=== PATIENT | female | born 1975 | race Caucasian/White ===

== ENCOUNTER 2019-11-18 03:46 | Inpatient (IN) | payer BC ==
[~2019-11-18] VITALS: Ht 162.6 cm; Wt 90.8 kg
[2019-11-18] MEDS ORDERED: CEFTRIAXONE SOD 1 GM/NS 50 ML 50 ML IV ONE (04:00)
[2019-11-18] MEDS ORDERED: DEXAMETHASONE SOD PHOS 10 MG/1 ML VIAL IV ONE (04:00)
[2019-11-18] MEDS ORDERED: ACETAMINOPHEN 325 MG TAB PO ONE (04:00)
[2019-11-18] MEDS ORDERED: ONDANSETRON HCL INJ 2MG/ML 2ML 2 MG/ML VIAL IV STA (04:00)
[2019-11-18] MEDS ORDERED: AZITHROMYCIN 500MG/NS 250 ML 250 ML IV ONE (04:00)
[2019-11-18] MEDS ORDERED: ONDANSETRON HCL INJ 2MG/ML 2ML 2 MG/ML VIAL ONE (04:08)
[2019-11-18] MEDS ORDERED: ACETAMINOPHEN 325 MG TAB ONE (04:08)
--- NOTE | 2019-11-18 04:34 | Emergency Department Note ---
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 Historian: Patient Arrival Mode: Car Integrity Manager Required: No Onset (how long ago): day(s) (3) Location: CHEST Quality: COUGH, SOB Radiation: Reports non-radiation Severity: moderate Onset quality: gradual Duration (how long): day(s) (3) Timing of current episode: constant Progression: worsening Chronicity: new Context: Denies recent illness, Denies recent surgery, Denies recent travel, Denies trauma/injury Relieving factors: none Exacerbating factors: movement, other (COUGHIN) Associated symptoms: Reports cough, Reports fever/chills, Reports nausea/vomiting, Reports shortness of breath Treatments prior to arrival: antipyretic Past Medical/Family History Physician Review I have reviewed the patient's past medical and family history. Any updates have been documented here. Past Medical History Recent Fever: Yes Clinical Suspicion of Infectio: Yes New/Unexplained Change in Ment: No Past Medical History: None Past Surgical History: Tubal Ligation, , Hernia Repair Other Surgery: X5 HERNIA MESH Social History Smoking Cessation: Former smoker Alcohol Use: None Any Illegal Drug Use: No Family History Family history of heart diseas: No Review of Systems Review of Systems Constitutional: Reports no symptoms EENTM: Reports no symptoms Cardiovascular: Reports no symptoms Respiratory: Reports as per HPI Gastrointestinal: Reports as per HPI Genitourinary: Reports no symptoms Musculoskeletal: Reports no symptoms Integumentary: Reports no symptoms Neurological: Reports no symptoms Psychological: Reports no symptoms Endocrine: Reports no symptoms Hematological/Lymphatic: Reports no symptoms Physical Exam Related Data Allergies: Coded Allergies: No Known Allergies (Unverified , 11/18/19) Triage Vital Signs Vital Signs Date Time Temp Pulse Resp B/P (MAP) Pulse Ox O2 Delivery O2 Flow Rate FiO2 11/18/19 03:51 103.3 104 24 156/100 87 Room Air 11/18/19 04:06 2.0 Vital signs reviewed: Yes Physical Exam CONSTITUTIONAL Constitutional: Present well-developed, Present well-nourished HENT HENT: Present normocephalic, Present atraumatic, Present oropharynx clear/moist, Present nose normal HENT L/R: Present left ext ear normal, Present right ext ear normal EYES Eyes: Reports PERRL, Reports conjunctivae normal NECK Neck: Present ROM normal PULMONARY Pulmonary: Present effort normal, Present other (BREATH SOUNDS DECREASED IN LOWER LOBES BILATERAL) CARDIOVASCULAR Cardiovascular: Present regular rhythm, Present heart sounds normal, Present capillary refill normal, Present tachycardia (102) GASTROINTESTINAL Abdominal: Present soft, Present nontender, Present bowel sounds normal GENITOURINARY Genitourinary: Present exam deferred SKIN Skin: Present warm, Present dry MUSCULOSKELETAL Musculoskeletal: Present ROM normal NEUROLOGICAL Neurological: Present alert, Present oriented x 3, Present no gross motor or sensory deficits PSYCHOLOGICAL Psychological: Present mood/affect normal, Present judgement normal Results Laboratory Laboratory Laboratory Tests Test 11/18/19 04:50 11/18/19 04:00 White Blood Count 2.39 x10e3/uL (4.8-10.8) Red Blood Count 4.52 x10e6/uL (3.6-5.1) Hemoglobin 12.2 g/dL (12.0-16.0) Hematocrit 37.8 % (34.2-44.1) Mean Corpuscular Volume 83.6 fL (81-99) Mean Corpuscular Hemoglobin 27.0 pg (28-32) Mean Corpuscular Hemoglobin Concent 32.3 g/dL (31-35) Red Cell Distribution Width 14.5 % (11.7-14.4) Platelet Count 187 x10e3/uL (140-360) Neutrophils (%) (Auto) 62.8 % (38.7-80.0) Lymphocytes (%) (Auto) 29.3 % (18.0-39.1) Monocytes (%) (Auto) 6.7 % (4.4-11.3) Eosinophils (%) (Auto) 0.4 % (0.0-6.0) Basophils (%) (Auto) 0.4 % (0.0-1.0) Neutrophils # (Auto) 1.5 (2.1-6.9) Lymphocytes # (Auto) 0.7 (1.0-3.2) Monocytes # (Auto) 0.2 (0.2-0.8) Eosinophils # (Auto) 0.0 (0.0-0.4) Basophils # (Auto) 0.0 (0.0-0.1) Absolute Immature Granulocyte (auto 0.01 x10e3/uL (0-0.1) Urine Color Yellow (YELLOW) Urine Clarity Sl cloudy (CLEAR) Urine pH 6 (5 - 7) Urine Specific [place] 1.025 (1.010-1.025) Urine Protein 1+ (NEGATIVE) Urine Glucose (UA) Negative (NEGATIVE) Urine Ketones Negative (NEGATIVE) Urine Blood Trace (NEGATIVE) Urine Nitrite Negative (NEGATIVE) Urine Bilirubin Negative (NEGATIVE) Urine Urobilinogen 1 mg/dL (0.2 - 1) Urine Leukocyte Esterase Negative (NEGATIVE) Urine RBC 6-10 /HPF (0-5) Urine WBC 6-10 /HPF (0-5) Urine Epithelial Cells Moderate /LPF (NONE) Urine Bacteria Many /HPF (NONE) Urine Mucus Many (RARE) Sodium Level 136 mmol/L (136-145) Potassium Level 3.6 mmol/L (3.5-5.1) Chloride Level 99 mmol/L (98-107) Carbon Dioxide Level 24 mmol/L (22-29) Anion Gap 16.6 mmol/L (8-16) Blood Urea Nitrogen 5 mg/dL (7-26) Creatinine 0.72 mg/dL (0.57-1.11) Estimat Glomerular Filtration Rate > 60 ML/MIN (60-) BUN/Creatinine Ratio 7 (6-25) Glucose Level 137 mg/dL (74-118) Lactic Acid Level 1.2 mmol/L (0.5-2.0) Calcium Level 8.1 mg/dL (8.4-10.2) Total Bilirubin 0.3 mg/dL (0.2-1.2) Aspartate Amino Transf (AST/SGOT) 42 IU/L (5-34) Alanine Aminotransferase (ALT/SGPT) 24 IU/L (0-55) Alkaline Phosphatase 51 IU/L (40-150) Creatine Kinase 172 IU/L (29-168) Total Protein 7.2 g/dL (6.5-8.1) Albumin 3.1 g/dL (3.5-5.0) Globulin 4.1 g/dL (2.3-3.5) Albumin/Globulin Ratio 0.8 (0.8-2.0) Lab results reviewed: Yes Imaging Imaging results reviewed: Yes Impressions Procedure: [id number] DX/CHEST SINGLE (PORTABLE) Exam Date: 11/18/19 Exam Time: 0430 REPORT STATUS: Signed EXAMINATION: CHEST SINGLE (PORTABLE) INDICATION: COUGH, SOB, POSSIBLE COVID COMPARISON: None FINDINGS: TUBES and LINES: None. LUNGS: Peripheral predominant hazy and patchy opacities in the mid and lower lungs. Patchy perihilar opacities. PLEURA: No pleural effusion or pneumothorax. HEART AND MEDIASTINUM: The cardiomediastinal silhouette is unremarkable. IMPRESSION: Lung findings concerning for multifocal pneumonia/viral pneumonia. Signed by: Scooter Ahumada MD on 11/18/2019 4:56 AM Dictated By: SCOOTER AHUMADA MD 5 Transcribed By: SUJATA on 11/18/19455 COPY TO: JAMARCUS BEAVERS MD~ Procedures 12 Lead ECG Interpretation ECG Interpretation : ECG: ECG 1 Integrity Manager: Interpreted by ED physician Date: Nov 18, 2019 Time: 04:17 Rhythm: sinus rhythm Rate: normal BPM: 89 QRS axis: normal ST segments normal: Yes T waves normal: Yes T waves flattening: V1, V2 Other findings: no other findings Clinical Impression: abnormal ECG Assessment & Plan Medical Decision Making MDM PT WITH DRY COUGH, FEVER CHILLS, AND NAUSEA CBC, CMP, COVID 19, BLOOD CULTURES, UA, URINE CULTURE, LACTIC ACID, CXR, EKG,CARDIAC ENZYMES ORDERED TO EVAL FOR COVID 19, PNEUMONIA, SEPSIS, ELECTROLYTE ABNORMALITY, UTI TYLENOL 975 MG PO ORDERED ROCEPHIN 1GRAM IV ORDERED ZITHROMAX 500 MG IV ORDERED ZOFRAN 4 MG IV ORDERED I SPOKE WITH DR MARINELLI, DR Violet JACINTO AND LEFT A MESSAGE FOR DR SEAY, ADMIT INPATIENT TO COVID PUI Assessment & Plan Final Impression: (1) COVID-19 (2) Viral pneumonia (3) UTI (urinary tract infection) (4) Hypoxemia requiring supplemental oxygen (5) Fever Depart Disposition: ADMITTED Last Vital Signs Date Time Temp Pulse Resp B/P (MAP) Pulse Ox O2 Delivery O2 Flow Rate FiO2 11/18/19 04:06 2.0 11/18/19 03:51 103.3 104 24 156/100 87 Room Air Medications in the ED Ceftriaxone Sodium 50 ml @ 100 mls/hr ONCE ONCE IV ; Start 11/18/19 at 04:00; Stop 11/18/19 at 04:29 Azithromycin 250 ml @ 200 mls/hr NOW ONCE IV ; Start 11/18/19 at 04:00; Stop 11/18/19 at 05:14 Dexamethasone Sodium Phosphate 6 mg ONCE ONCE IV ; Start 11/18/19 at 04:00; Stop 11/18/19 at 04:05; Status DC Acetaminophen 975 mg ONCE ONCE PO Last administered on 11/18/19at 04:05; Admin Dose 975 MG; Start 11/18/19 at 04:00; Stop 11/18/19 at 04:05; Status DC Ondansetron HCl 4 mg NOW STAT IV Last administered on 11/18/19at 04:05; Admin Dose 4 MG; Start 11/18/19 at 04:00; Stop 11/18/19 at 04:05; Status DC Acetaminophen 975 mg STK-MED ONCE .ROUTE ; Start 11/18/19 at 04:08; Stop 11/18/19 at 04:01; Status DC Ondansetron HCl 4 mg STK-MED ONCE .ROUTE ; Start 11/18/19 at 04:08; Stop 11/18/19 at 04:01; Status DC JAMARCUS BEAVERS MD Nov 18, 2019 04:34
[2019-11-18 04:36] LABS: BASOPHILS % 0.4 % (0.0-1.0); EOSINOPHILS % 0.4 % (0.0-6.0); HEMATOCRIT 37.8 % (34.2-44.1); HEMOGLOBIN 12.2 g/dL (12.0-16.0); LYMPHOCYTES # (AUTO) 0.7 (1.0-3.2); LYMPHOCYTES % 29.3 % (18.0-39.1); MEAN CORPUSCULAR HGB CONC 32.3 g/dL (31-35); MEAN CORPUSCULAR VOLUME 83.6 fL (81-99); MONOCYTES # (AUTO) 0.2 (0.2-0.8); MONOCYTES % 6.7 % (4.4-11.3); NEUTROPHILS # (AUTO) 1.5 (2.1-6.9); NEUTROPHILS % 62.8 % (38.7-80.0); PLATELET COUNT 187 x10e3/uL (140-360); RED BLOOD COUNT 4.52 x10e6/uL (3.6-5.1); RED CELL DISTRIBUTION WIDTH 14.5 % (11.7-14.4)
[2019-11-18 04:47] LABS: CLARITY,URINE SL CLOUDY (CLEAR); COLOR,URINE YELLOW (YELLOW); LEUKOCYTE ESTERASE ,URINE NEGATIVE (NEGATIVE); NITRITE,URINE NEGATIVE (NEGATIVE); PROTEIN,URINE DIPSTICK 1+ (NEGATIVE)
[2019-11-18 04:48] LABS: BILIRUBIN,URINE NEGATIVE (NEGATIVE); KETONES,URINE NEGATIVE (NEGATIVE); URINE UROBILINOGEN 1 mg/dL (0.2 - 1)
[2019-11-18 04:55] LABS: ALANINE AMINOTRANSFERASE 24 IU/L (0-55); ALBUMIN 3.1 g/dL (3.5-5.0); ALBUMIN/GLOBULIN RATIO 0.8 (0.8-2.0); ALKALINE PHOSPHATASE 51 IU/L (40-150); ANION GAP 16.6 mmol/L (8-16); BLOOD UREA NITROGEN 5 mg/dL (7-26); BUN/CREATININE RATIO 7 (6-25); CALCIUM 8.1 mg/dL (8.4-10.2); CARBON DIOXIDE 24 mmol/L (22-29); CHLORIDE 99 mmol/L (98-107); CREATINE KINASE 172 IU/L (29-168); CREATININE, SERUM 0.72 mg/dL (0.57-1.11); EST GLOMERULAR FILTRATION RATE > 60 ML/MIN (60-); GLUCOSE 137 mg/dL (74-118); POTASSIUM 3.6 mmol/L (3.5-5.1); SODIUM 136 mmol/L (136-145)
[2019-11-18 04:58] LABS: BACTERIA,URINE MANY /HPF; EPITHELIAL CELLS,URINE MODERATE /LPF; MUCUS,URINE MANY (RARE)
--- NOTE | 2019-11-18 05:00 | Diagnostic Imaging Report ---
EXAMINATION: CHEST SINGLE (PORTABLE) INDICATION: COUGH, SOB, POSSIBLE COVID COMPARISON: None FINDINGS: TUBES and LINES: None. LUNGS: Peripheral predominant hazy and patchy opacities in the mid and lower lungs. Patchy perihilar opacities. PLEURA: No pleural effusion or pneumothorax. HEART AND MEDIASTINUM: The cardiomediastinal silhouette is unremarkable. IMPRESSION: Lung findings concerning for multifocal pneumonia/viral pneumonia. Signed by: Radames Arrieta MD on 11/18/2019 4:56 AM
[2019-11-18] MEDS ORDERED: ONDANSETRON HCL INJ 2MG/ML 2ML 2 MG/ML VIAL IV PRN (05:15)
[2019-11-18] MEDS ORDERED: AZITHROMYCIN 500MG/NS 250 ML 250 ML IV SCH (05:15)
[2019-11-18] MEDS ORDERED: SODIUM CHLORIDE FLUSH 10 ML SYR INJ PRN (05:15)
[2019-11-18] MEDS ORDERED: DEXAMETHASONE SOD PHOS 10 MG/1 ML VIAL IV SCH (05:15)
[2019-11-18] MEDS ORDERED: CEFTRIAXONE SOD 1 GM/NS 50 ML 50 ML IV SCH (05:15)
[2019-11-18] MEDS ORDERED: ACETAMINOPHEN 325 MG TAB PO PRN (05:15)
[2019-11-18 06:34] VITALS: BP 109/67
--- NOTE | 2019-11-18 07:01 | NUR ---
PT REPORT GIVEN TO DAYSMDFT NURSE, Christen REYES LVN.
--- NOTE | 2019-11-18 07:02 | NUR ---
received report from off going nurse. patient in room in bed. awake and alert. no s/s of acute distress. resp even and non labored. pending room assignment for admission. will continue to monitor.
[2019-11-18] MEDS ORDERED: HYDRALAZINE HCL 20 MG/ML VIAL IV PRN (07:15)
[2019-11-18] MEDS ORDERED: MELATONIN 5 MG TABLET PO PRN (07:15)
[2019-11-18] MEDS ORDERED: DOCUSATE SODIUM 100 MG CAP PO PRN (07:15)
[2019-11-18] MEDS ORDERED: POLYETHYLENE GLYCOL 3350 17 GM PACK PO PRN (07:30)
[2019-11-18] MEDS ORDERED: IBUPROFEN 600 MG TAB PO PRN (07:30)
[2019-11-18] MEDS ORDERED: DEXTROSE 50% SYRINGE 50 ML IV PRN ×2 (07:30)
[2019-11-18] MEDS: PANTOPRAZOLE SOD 40 MG TABEC PO SCH (08:41)
--- NOTE | 2019-11-18 09:03 | Consultation ---
DATE OF CONSULTATION: Pulmonary Critical Care Consultation CHIEF COMPLAINT: Cough, dyspnea and fevers. HISTORY OF PRESENT ILLNESS: The patient is a 44-year-old woman. She reports cough for the past 3 days. She also had some fevers. This morning, she had more difficulty breathing and she came to the emergency department. Her temperature was 103 initially, but improved with Tylenol and fluids. She also had a chest x-ray suggestive of multifocal pneumonia. PAST SURGICAL HISTORY: 1. Status post C-sections and tubal ligation. 2. Status post hernia repair with mesh placement. PAST MEDICAL HISTORY: 1. No prior history of asthma or respiratory problems. 2. No prior history of cardiac disease. 3. No prior history of diabetes. 4. No hypertension. ALLERGIES: NO KNOWN DRUG ALLERGIES. SOCIAL HISTORY: The patient quit smoking several years ago. She is not a drinker. She has some cats at home, but no birds or dogs. FAMILY HISTORY: Noncontributory. REVIEW OF SYSTEMS: The patient had fevers. There is no headache. She has no neck pain. She is complaining of cough and dyspnea. She has no chest pain. She has no nausea or vomiting. She did have some diarrhea. She has no leg swelling. She has no neurological complaints. PHYSICAL EXAMINATION: VITAL SIGNS: Blood pressure is 138/75, saturation is 98% on 2 L. Temperature is now 100.3. HEENT: Shows no facial swelling or erythema. LYMPHATIC: Shows no submandibular, cervical, or supraclavicular adenopathy. CARDIAC: Reveals regular rate and rhythm with normal S1 and S2. LUNGS: Auscultation of lungs reveals crackles at the bases. There is no wheezing. ABDOMEN: Soft and nontender. There is no rebound or guarding. EXTREMITIES: Shows no leg edema or calf tenderness. There is no cyanosis or clubbing. SKIN: Shows no rashes. NEUROLOGICAL: Shows no focal abnormalities. LABORATORY DATA: White blood cell count is 2.4 and hemoglobin is 12.2. The platelet count is 187. The BUN to creatinine ratio is 5 to 0.72. The potassium is 3.6. The other electrolytes are within normal limits and the albumin is 3.1. RADIOGRAPHIC DATA: Chest x-ray shows multifocal infiltrates suggestive of viral pneumonia. IMPRESSION: 1. COVID-19 and viral pneumonia. 2. Leukopenia, present on admission. 3. Diarrhea. PLAN: 1. The patient was started on azithromycin and Rocephin. 2. The patient is also receiving dexamethasone. 3. Lovenox. 4. Judicious use of intravenous fluids. 5. Because the patient has only been symptomatic for 3 days, she may be a very good candidate for remdesivir and/or monoclonal antibodies. MD JENI Lennon/IDALIA /[id number]
[2019-11-18] MEDS: CEFTRIAXONE SOD 2 GM/NS 100 ML 100 ML IV SCH (11:09)
[2019-11-18] MEDS: AZITHROMYCIN 500MG/NS 250 ML 250 ML IV SCH (11:09)
--- NOTE | 2019-11-18 12:47 | NUR ---
Skilled PT services not indicated at this time since patient is independent in functional mobility. Thank you. Addendum: 11/18/19 at 1248 by Darin bourgeois PT Amended: Links added.
--- NOTE | 2019-11-18 12:49 | Consultation ---
DATE OF CONSULTATION: REASON FOR CONSULTATION: Pneumonia, concerned about COVID. HISTORY OF PRESENT ILLNESS: This patient is a very pleasant 44-year-old white female, comes in with 3 days history of cough, fever, and not feeling well. 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 The patient came to emergency room where she was found to be hypoxemic. She is currently on 2 L. PAST MEDICAL HISTORY: She denies any past medical history. PAST SURGICAL HISTORY: , hernia repair, and mesh placement. ALLERGIES: NKA. SOCIAL HISTORY: She quit smoking several years ago. There is no drug abuse or alcohol abuse. She has cat in the hospice, no other animals. LABORATORY DATA: White count 2.39, hemoglobin 12, hematocrit 37, platelets 187. Her sodium 136, potassium 3.6, creatinine 0.72. Her influenza A and B were negative. Her COVID-19 is still pending. Her chest x-ray showed multifocal pneumonia. PHYSICAL EXAMINATION: GENERAL: She is currently alert, oriented. VITAL SIGNS: Stable, currently afebrile, temperature 100.3. HEENT: Normocephalic, not icteric. NECK: Supple. CHEST: Few crackles bilateral. HEART: S1-S2. ABDOMEN: Soft. Bowel sounds present. EXTREMITIES: No edema. SKIN: No rash. IMPRESSION: Atypical pneumonia, concerned about COVID-19. Discussed with the patient and we are still waiting on the COVID-19 PCR, but we talked about remdesivir, it is still an investigational drug, however, the patient did agree to it. She knows if she cannot take it any time, she can stop it at any time. She knows this is not FDA approved unless it still investigational, but she would like to have it also. We talked about convalescent plasma. She has no interest in convalescent plasma at present time. We will give her the multivitamins, vitamin C and vitamin D. The patient is infectious for 3 weeks. No need to repeat PCR. We are still waiting on the PCR however, but she is very suspicious that she does have it at the present time. We will follow. MD JIE Johnson/IDALIA /[id number]
[2019-11-18] MEDS ORDERED: REMDESIVIR 200MG/NS 100ML 200 MG IV ONE (14:00)
[2019-11-18] MEDS: ACETAMINOPHEN 325 MG TAB PO PRN (16:00)
--- NOTE | 2019-11-18 16:27 | NUR ---
family contact daughter - Kya
[2019-11-18] MEDS: ENOXAPARIN SOD INJ 40 MG/0.4 ML SYR SC SCH (18:11)
[2019-11-18] MEDS: ASCORBIC ACID 500 MG TAB PO SCH (18:11)
--- NOTE | 2019-11-18 18:30 | NUR ---
COVID POSITIVE PATIENT. PATIENT RECEIVED LYING IN BED IN NO ACUTE DISTRESS. PATIENT IS AAOX4 AND DENIES ANY FURTHER NEEDS. PATIENT WAS EDUCATED ON FALL RISK PRECAUTIONS AND VERBALIZED UNDERSTANDING. CALL LIGHT AND BELONGINGS PLACED NEARBY. WILL CONTINUE TO MONITOR.
--- NOTE | 2019-11-18 19:05 | NUR ---
SBAR BEDSIDE REPORT GIVEN TO PM SHIFT RN.
[2019-11-18] MEDS ORDERED: KEFLEX500 MG PO (19:25)
[2019-11-18 20:00] VITALS: BP 121/79
[2019-11-18] MEDS: BENZONATATE 100 MG CAP PO PRN (20:45)
[2019-11-18 21:00] VITALS: BP 121/79
[2019-11-18] MEDS ORDERED: HYDROCODONE/APAP 7.5MG-325MG 1 EA TAB PO ONE (21:00)
[2019-11-19] VITALS (8 sets, daily range): BP systolic 109–132; BP diastolic 67–81
[2019-11-19] MEDS: HYDROCODONE/APAP 5MG-325MG TAB PO PRN ×4 (02:50→22:00)
[2019-11-19] MEDS: BENZONATATE 100 MG CAP PO PRN ×4 (02:50→22:00)
[2019-11-19] MEDS: ACETAMINOPHEN 325 MG TAB PO PRN (02:50)
--- NOTE | 2019-11-19 03:02 | History and Physical ---
CHIEF COMPLAINT: Cough, congestion, fever. HISTORY OF PRESENT ILLNESS: A 44-year-old female, who presented to the emergency room with complaints of cough, congestion, subjective fever ongoing for the last 3 days. She woke up, noticed to have difficulty breathing and came into the emergency room for further evaluation and management. Here in the ER, she was found to have a temperature of 103. The patient has symptoms of coronavirus, but the PCR is currently pending. Pulmonary and ID have been consulted. REVIEW OF SYSTEMS: Pertinent positives, cough, congestion, fever, shortness of breath. The rest of the 14-point review of systems have been reviewed with the patient and are negative. ALLERGIES: NO KNOWN DRUG ALLERGIES. HOME MEDICATIONS: Keflex. PAST MEDICAL HISTORY: None. PAST SURGICAL HISTORY: None. FAMILY HISTORY: None. SOCIAL HISTORY: No drugs. No alcohol. Does not smoke. Good social support. PHYSICAL EXAMINATION: VITAL SIGNS: Temperature is 98.5, pulse 63, respiratory rate is 18, blood pressure 121/79, pulse ox 99% on 2 L nasal cannula. GENERAL: No acute distress. Alert and oriented x3. Cooperative on examination. PULMONARY: Clear to auscultation bilaterally. No wheezing, rales, or rhonchi. No crackles appreciated. CARDIOVASCULAR: Positive S1 and S2. No murmurs, rubs, or gallops appreciated. ABDOMEN: Soft, nondistended, nontender to palpation. Bowel sounds present. MUSCULOSKELETAL: Strength 5/5 throughout. NEUROLOGICAL: Alert and oriented x3. Cooperative on exam. LABORATORY DATA: White count 10.3, hemoglobin 12, hematocrit 37, platelets 187. Chemistry; sodium 136, potassium 3.6, chloride 99, bicarb 24, anion gap of 16, BUN is 5, creatinine 0.72, lactic acid 1.2, glucose 137, calcium 8.1, total bilirubin 0.3, AST 42, ALT 24, alkaline phosphatase 51. CK 172. Troponins are negative. Albumin 3.1. Urinalysis, many mucus, bacteria many, 6-10 wbc's, negative leukocyte esterase, negative nitrites. SEROLOGY: Coronavirus positive. Influenza negative. MICROBIOLOGY: Blood and urine cultures pending. IMAGING STUDIES: Chest x-ray, lungs consistent with multifocal viral pneumonia. IMPRESSION: 1. COVID-19 pneumonia/viral pneumonia. 2. Acute hypoxemia secondary to coronavirus. 3. Leukopenia. 4. Diarrhea, all consistent with underlying coronavirus. PLAN: At this time, the patient has symptomatic coronavirus, in which Pulmonary and ID have been consulted. The patient has been initiated on remdesivir, IV antibiotics, and IV Decadron. She is on antiplatelet medication. Pain control. Lovenox for DVT prophylaxis. She is currently on oxygen, which will continue to be monitored very closely. Otherwise consultants: ID and Pulmonary Critical Care. MD WILMA Bartlett/MODL /[id number]
[2019-11-19] MEDS: DEXAMETHASONE SOD PHOS INJ 4 MG/ML VIAL IV SCH (05:30)
--- NOTE | 2019-11-19 07:05 | NUR ---
COVID POSITIVE PATIENT IN NEGATIVE PRESSURE ROOM. SBAR BEDSIDE REPORT RECEIVED FROM PM SHIFT NURSE. PATIENT FOUND LYING IN BED IN NO ACUTE DISTRESS WITH NASAL CANNULA IN PLACE. PATIENT WAS EDUCATED ON FALL RISK PRECAUTIONS AND VERBALIZED UNDERSTANDING. CALL LIGHT AND BELONGINGS PLACED NEARBY. WILL CONTINUE TO MONITOR.
[2019-11-19 07:12] LABS: ALANINE AMINOTRANSFERASE 22 IU/L (0-55); ALKALINE PHOSPHATASE 45 IU/L (40-150); ANION GAP 13.8 mmol/L (8-16); BASOPHILS % 0.2 % (0.0-1.0); BLOOD UREA NITROGEN 10 mg/dL (7-26); BUN/CREATININE RATIO 15 (6-25); CALCIUM 8.4 mg/dL (8.4-10.2); CARBON DIOXIDE 27 mmol/L (22-29); CHLORIDE 103 mmol/L (98-107); CREATININE, SERUM 0.67 mg/dL (0.57-1.11); EST GLOMERULAR FILTRATION RATE > 60 ML/MIN (60-); GLUCOSE 124 mg/dL (74-118); HEMOGLOBIN 11.1 g/dL (12.0-16.0); LYMPHOCYTES % 21.2 % (18.0-39.1); MEAN CORPUSCULAR HEMOGLOBIN 26.7 pg (28-32); MEAN CORPUSCULAR HGB CONC 31.7 g/dL (31-35); MEAN CORPUSCULAR VOLUME 84.1 fL (81-99); MONOCYTES # (AUTO) 0.3 (0.2-0.8); MONOCYTES % 7.3 % (4.4-11.3); NEUTROPHILS # (AUTO) 3.2 (2.1-6.9); NEUTROPHILS % 71.1 % (38.7-80.0); PLATELET COUNT 211 x10e3/uL (140-360); POTASSIUM 3.8 mmol/L (3.5-5.1); RED BLOOD COUNT 4.16 x10e6/uL (3.6-5.1); RED CELL DISTRIBUTION WIDTH 14.5 % (11.7-14.4); SODIUM 140 mmol/L (136-145)
[2019-11-19 07:20] LABS: ALBUMIN 2.9 g/dL (3.5-5.0); ALBUMIN/GLOBULIN RATIO 0.8 (0.8-2.0)
[2019-11-19] MEDS: PANTOPRAZOLE SOD 40 MG TABEC PO SCH (07:30)
[2019-11-19] MEDS: ZINC SULFATE 220 MG CAP PO SCH (08:55)
[2019-11-19] MEDS: ASCORBIC ACID 500 MG TAB PO SCH ×2 (08:55→17:14)
[2019-11-19] MEDS ORDERED: ZINC SULFATE 50 MG CAP PO SCH (09:00)
[2019-11-19] MEDS: AZITHROMYCIN 500MG/NS 250 ML 250 ML IV SCH (11:30)
[2019-11-19] MEDS ORDERED: SODIUM CHLORIDE 0.9% 500ML 500 ML ONE (11:36)
--- NOTE | 2019-11-19 11:43 | Progress Note ---
DATE: SUBJECTIVE: The patient is still having cough and fever. She has some dyspnea. She is receiving remdesivir. PHYSICAL EXAMINATION: VITAL SIGNS: The patient is afebrile. The blood pressure is 119/80, saturation is 95% on 2.5 L. The pulse is 70. HEENT: Shows no facial swelling or erythema. LYMPHATIC: Shows no submandibular, cervical, or supraclavicular adenopathy. CARDIAC: Reveals regular rate and rhythm with normal S1 and S2. LUNGS: Auscultation of lungs shows rhonchorous breath sounds bilaterally. There is no wheezing. ABDOMEN: Soft and nontender. There is no rebound or guarding. EXTREMITIES: Shows no leg edema or calf tenderness. There is no cyanosis or clubbing. LABORATORY DATA: White blood cell count is 4.49, hemoglobin is 11.1. The platelet count is 211. The BUN to creatinine ratio is 10 to 0.67. Other electrolytes are within normal limits and the albumin is 2.9. IMPRESSION: 1. Acute respiratory failure. 2. COVID-19 and viral pneumonia. 3. Diarrhea. PLAN: 1. Complete remdesivir. 2. Complete dexamethasone. 3. Continue Lovenox. 4. Continue oxygen. Evaristo Noriega MD [facility]/MODL /[id number]
[2019-11-19] MEDS: CEFTRIAXONE SOD 2 GM/NS 100 ML 100 ML IV SCH (13:55)
[2019-11-19] MEDS: REMDESIVIR 100MG/NS 100ML 100 MG IV SCH (15:34)
--- NOTE | 2019-11-19 16:27 | NUR ---
INFECTIOUS DISEASE PROGRESS NOTE DR. HUSSAIN SEAY REASON FOR CONSULTATION: COVID. HISTORY OF PRESENT ILLNESS: This patient is a very pleasant 44-year-old white female, comes in with 3 days history of cough, fever, and not feeling well. 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 The patient came to emergency room where she was found to be hypoxemic. She is currently on 2 L. ROS: +fatigue +SOB ALL 14 POINT ROS NEG UNLESS OTHERWISE NOTED ALLERGIES: NKA. LABORATORY DATA: REVIEWED RADIOLOGY: reviewed PHYSICAL EXAMINATION: GENERAL: She is currently alert, oriented. VITAL SIGNS: per chart HEENT: Normocephalic, not icteric. NECK: Supple. CHEST: Few crackles bilateral. HEART: S1-S2. ABDOMEN: Soft. Bowel sounds present. EXTREMITIES: No edema. SKIN: No rash. IMPRESSION: COVID 19 PNA diarrhea PLAN: RMSV day #2 COVID protocol supportive care Khushbu Trevino MSN, INSURANCE AND BENEFITS CLERK, AGACNP- Hussain Seay M.D
[2019-11-19] MEDS: ENOXAPARIN SOD INJ 40 MG/0.4 ML SYR SC SCH (17:14)
[2019-11-19] MEDS ORDERED: ERGOCALCIFEROL 50,000 UNIT CAP PO SCH (18:00)
--- NOTE | 2019-11-19 19:30 | NUR ---
Report given to nurse on Med/surg 3. Patient updated on transfer. No issues or concerns noted. A&Ox3
--- NOTE | 2019-11-19 19:57 | NUR ---
Patient transferred to room 297 with all personal belongings. A&Ox3, on 2.5L NC, patient stable at this time. Oriented to room and environment. Call light within reach. Nurse notified of transfer. Patient request to call son without staff in room at 1999 till 2029, nurse updated.
[2019-11-20] VITALS (8 sets, daily range): BP systolic 114–142; BP diastolic 64–84
--- NOTE | 2019-11-20 03:26 | Progress Note ---
DATE: 11/19/2019 Medicine Progress Note SUBJECTIVE: The patient doing well today with no complaints. She is on nasal cannula, but she reports feeling much better today. No overnight events. OBJECTIVE: VITAL SIGNS: Temperature 99.1, pulse 64, respiratory rate 17, blood pressure is 113/81, pulse ox 98% on 2.5 L nasal cannula. GENERAL: No acute distress. Alert and oriented x3. Cooperative on examination. HEENT: Head normocephalic, atraumatic. Eyes; pupils equal, round and reactive to light bilaterally. Extraocular muscles intact bilaterally. NECK: Supple. Good range of motion. Throat, no evidence of any erythema or exudates in the posterior pharynx. Has poor dentition. PULMONARY: Clear to auscultation bilaterally. No wheezing, rales, or rhonchi. No crackles appreciated. CARDIOVASCULAR: Positive S1, S2. No murmurs, rubs, or gallops appreciated. ABDOMEN: Soft, nondistended, nontender to palpation. Bowel sounds present. LABORATORY FINDINGS: Show CBC, stable. Chemistry, reviewed and stable. Blood cultures, no growth. Urine cultures, no growth. IMPRESSION: 1. COVID-19 pneumonia/viral pneumonia. 2. Acute hypoxemic respiratory distress secondary to coronavirus. 3. Leukopenia. 4. Diarrhea secondary to coronavirus. PLAN: At this time, the patient is getting Remdesivir antibiotics and Decadron including multivitamins. Continue same home medications. Follow with the rest of the consultants. MD WILMA Bartlett/KARINL /[id number]
[2019-11-20] MEDS: BENZONATATE 100 MG CAP PO PRN ×4 (04:00→22:49)
[2019-11-20] MEDS: HYDROCODONE/APAP 5MG-325MG TAB PO PRN ×4 (04:00→22:49)
[2019-11-20] MEDS: ONDANSETRON HCL INJ 2MG/ML 2ML 2 MG/ML VIAL IV PRN (04:00)
[2019-11-20] MEDS: DEXAMETHASONE SOD PHOS INJ 4 MG/ML VIAL IV SCH (04:00)
[2019-11-20 09:35] LABS: HEMATOCRIT 31.1 % (34.2-44.1); HEMOGLOBIN 10.8 g/dL (12.0-16.0); LYMPHOCYTES # (AUTO) 0.7 (1.0-3.2); LYMPHOCYTES % 17.5 % (18.0-39.1); MEAN CORPUSCULAR HEMOGLOBIN 30.8 pg (28-32); MEAN CORPUSCULAR HGB CONC 34.7 g/dL (31-35); MEAN CORPUSCULAR VOLUME 88.6 fL (81-99); MONOCYTES # (AUTO) 0.2 (0.2-0.8); MONOCYTES % 4.3 % (4.4-11.3); NEUTROPHILS # (AUTO) 2.9 (2.1-6.9); NEUTROPHILS % 77.9 % (38.7-80.0); PLATELET COUNT 173 x10e3/uL (140-360); RED BLOOD COUNT 3.51 x10e6/uL (3.6-5.1); RED CELL DISTRIBUTION WIDTH 17.9 % (11.7-14.4)
--- NOTE | 2019-11-20 09:39 | NUR ---
INFECTIOUS DISEASE PROGRESS NOTE DR. HUSSAIN SEAY REASON FOR CONSULTATION: COVID. HISTORY OF PRESENT ILLNESS: This patient is a very pleasant 44-year-old white female, comes in with 3 days history of cough, fever, and not feeling well. 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 The patient came to emergency room where she was found to be hypoxemic. She is currently on 2 L. ROS: +fatigue +SOB ALL 14 POINT ROS NEG UNLESS OTHERWISE NOTED ALLERGIES: NKA. LABORATORY DATA: REVIEWED RADIOLOGY: reviewed PHYSICAL EXAMINATION: GENERAL: She is currently alert, oriented. VITAL SIGNS: per chart HEENT: Normocephalic, not icteric. NECK: Supple. CHEST: Few crackles bilateral. HEART: S1-S2. ABDOMEN: Soft. Bowel sounds present. EXTREMITIES: No edema. SKIN: No rash. IMPRESSION: COVID 19 PNA diarrhea resolved PLAN: RMSV COVID protocol supportive care midline Khushbu Trevino MSN, DRYWALL HANGER HELPER, AGACNP-BC Hussain Seay M.D
[2019-11-20] MEDS ORDERED: REMDESIVIR 200MG/NS 100ML 200 MG in SODIUM CHLORIDE 0.9% 100 ML 100 ML IV ONE (09:45)
[2019-11-20 10:00] LABS: ALANINE AMINOTRANSFERASE 19 IU/L (0-55); ALBUMIN 2.8 g/dL (3.5-5.0); ALBUMIN/GLOBULIN RATIO 0.8 (0.8-2.0); ALKALINE PHOSPHATASE 42 IU/L (40-150); ANION GAP 15.1 mmol/L (8-16); BLOOD UREA NITROGEN 10 mg/dL (7-26); BUN/CREATININE RATIO 15 (6-25); CARBON DIOXIDE 24 mmol/L (22-29); CHLORIDE 103 mmol/L (98-107); CREATININE, SERUM 0.68 mg/dL (0.57-1.11); EST GLOMERULAR FILTRATION RATE > 60 ML/MIN (60-); GLUCOSE 213 mg/dL (74-118); POTASSIUM 4.1 mmol/L (3.5-5.1); SODIUM 138 mmol/L (136-145)
[2019-11-20] MEDS: ZINC SULFATE 220 MG CAP PO SCH (10:05)
[2019-11-20] MEDS: ASCORBIC ACID 500 MG TAB PO SCH ×3 (10:05→18:49)
[2019-11-20] MEDS: PANTOPRAZOLE SOD 40 MG TABEC PO SCH (10:05)
[2019-11-20] MEDS ORDERED: SODIUM CHLORIDE 0.9% 250ML 250 ML ONE (10:25)
[2019-11-20] MEDS: AZITHROMYCIN 500MG/NS 250 ML 250 ML IV SCH (10:50)
[2019-11-20] MEDS: REMDESIVIR 100MG/NS 100ML 100 MG IV SCH ×2 (14:00→18:49)
[2019-11-20] MEDS: GUAIFENESIN/CODEINE 10 ML CUP PO PRN (14:59)
--- NOTE | 2019-11-20 15:35 | NUR ---
PT C/O IRRITATION TO IV SITE AND NO LONGER WANTS ANY IV MEDICINES THROUGH IT. AWAITING TEAM TO ARRIVED FOR MIDLINE PLACEMENT.
[2019-11-20] MEDS: ENOXAPARIN SOD INJ 40 MG/0.4 ML SYR SC SCH ×2 (17:00→18:49)
--- NOTE | 2019-11-20 19:16 | Progress Note ---
DATE: SUBJECTIVE: The patient still has some cough and some dyspnea. She is completing remdesivir. PHYSICAL EXAMINATION: VITAL SIGNS: Blood pressure is 122/77, saturation is 99% on 2 L. HEENT: Shows no facial swelling or erythema. LYMPHATIC: Shows no submandibular, cervical, or supraclavicular adenopathy. CARDIAC: Reveals regular rate and rhythm with normal S1, S2. LUNGS: Auscultation of lungs shows decreased breath sounds at the bases. There is no wheezing. ABDOMEN: Soft and nontender. There is no rebound or guarding. EXTREMITIES: Shows no leg edema or calf tenderness. There is no cyanosis or clubbing. SKIN: Shows no rashes. NEUROLOGICAL: Shows no focal abnormalities. LABORATORY DATA: White blood cell count is 3.7, hemoglobin is 10.8, and the platelet count is 173. BUN to creatinine ratio is 10 to 0.68. Other electrolytes within normal limits. IMPRESSION: 1. Acute respiratory failure. 2. COVID-19 and viral pneumonia. 3. Diarrhea. PLAN: 1. Complete remdesivir. 2. Complete dexamethasone. 3. Continue Lovenox. 4. Continue oxygen. Evaristo Noriega MD [facility]L /[id number]
[2019-11-20] MEDS: CEFTRIAXONE SOD 2 GM/NS 100 ML 100 ML IV SCH (21:08)
--- NOTE | 2019-11-20 23:47 | Progress Note ---
DATE: 11/20/2019 Medicine Progress Note SUBJECTIVE: The patient doing well today with no complaints. She is still hypoxic, requiring 2 L nasal cannula, but she states she is improving much better today. PHYSICAL EXAMINATION: VITAL SIGNS: Temperature 98.3, pulse 60, respiratory rate is 18, blood pressure 142/64, and pulse ox 97% on 2 L nasal cannula. GENERAL: Not in acute distress. Alert and oriented x3. Cooperative on examination. PULMONARY: Clear to auscultation bilaterally. No wheezing, no rales, no rhonchi, no crackles appreciated. CARDIOVASCULAR: Positive S1 and S2. No murmurs, rubs, or gallops appreciated. ABDOMEN: Soft, nondistended, and nontender to palpation. Bowel sounds present. MUSCULOSKELETAL: Strength is 5/5 throughout. LABORATORY FINDINGS: Show white count 3.7, hemoglobin 10.8, hematocrit is 31, and platelets of 173. Chemistry; sodium 138, potassium 4.1, chloride 103, bicarb 24, anion gap of 15, BUN is 10, creatinine is 0.68, and glucose 213. LFTs within normal range. Albumin 2.8. Troponins negative. Urinalysis noted. Serology, influenza negative, guerrero positive. MICROBIOLOGY: Blood cultures, no growth. Urine cultures final, no growth. IMAGING STUDIES: Nothing new. IMPRESSION: 1. COVID-19 pneumonia/viral pneumonia. 2. Acute hypoxemic respiratory distress secondary to viral pneumonia from coronavirus. 3. Leukopenia, likely secondary to coronavirus. 4. Diarrhea secondary to coronavirus-improving. PLAN: At this time, the patient is getting remdesivir. This is day 3 of 5, which we will go ahead and continue for 5/ treatment. Continue with antibiotics and Decadron. Continue with multivitamins. Encourage ambulation. She is on Lovenox for DVT prophylaxis. Discussed plan of care with nursing staff and the patient. MD WILMA Bartlett/[facility]ALIA /[id number]
[2019-11-21] VITALS (8 sets, daily range): BP systolic 102–140; BP diastolic 73–93
[2019-11-21] MEDS: GUAIFENESIN/CODEINE 10 ML CUP PO PRN ×4 (00:47→12:32)
[2019-11-21] MEDS: ONDANSETRON HCL INJ 2MG/ML 2ML 2 MG/ML VIAL IV PRN ×3 (00:47→20:35)
[2019-11-21] MEDS: BENZONATATE 100 MG CAP PO PRN ×3 (04:15→20:35)
[2019-11-21] MEDS: DEXAMETHASONE SOD PHOS INJ 4 MG/ML VIAL IV SCH (04:15)
[2019-11-21] MEDS: HYDROCODONE/APAP 5MG-325MG TAB PO PRN ×3 (04:15→20:35)
[2019-11-21 06:31] LABS: BASOPHILS % 0.2 % (0.0-1.0); HEMATOCRIT 33.2 % (34.2-44.1); HEMOGLOBIN 10.6 g/dL (12.0-16.0); LYMPHOCYTES # (AUTO) 1.1 (1.0-3.2); LYMPHOCYTES % 19.4 % (18.0-39.1); MEAN CORPUSCULAR HEMOGLOBIN 27.5 pg (28-32); MEAN CORPUSCULAR HGB CONC 31.9 g/dL (31-35); MONOCYTES # (AUTO) 0.4 (0.2-0.8); MONOCYTES % 6.4 % (4.4-11.3); NEUTROPHILS % 73.1 % (38.7-80.0); PLATELET COUNT 271 x10e3/uL (140-360); RED BLOOD COUNT 3.86 x10e6/uL (3.6-5.1); RED CELL DISTRIBUTION WIDTH 14.5 % (11.7-14.4)
[2019-11-21 06:59] LABS: ALANINE AMINOTRANSFERASE 23 IU/L (0-55); ALBUMIN 2.7 g/dL (3.5-5.0); ALBUMIN/GLOBULIN RATIO 0.8 (0.8-2.0); ALKALINE PHOSPHATASE 44 IU/L (40-150); ANION GAP 11.9 mmol/L (8-16); BLOOD UREA NITROGEN 12 mg/dL (7-26); BUN/CREATININE RATIO 17 (6-25); CALCIUM 7.7 mg/dL (8.4-10.2); CARBON DIOXIDE 28 mmol/L (22-29); CHLORIDE 102 mmol/L (98-107); CREATININE, SERUM 0.69 mg/dL (0.57-1.11); EST GLOMERULAR FILTRATION RATE > 60 ML/MIN (60-); GLUCOSE 120 mg/dL (74-118); POTASSIUM 3.9 mmol/L (3.5-5.1); SODIUM 138 mmol/L (136-145)
[2019-11-21] MEDS ORDERED: REMDESIVIR 100MG/NS 100ML 100 MG in SODIUM CHLORIDE 0.9% 100 ML 100 ML IV SCH (09:00)
[2019-11-21] MEDS: PANTOPRAZOLE SOD 40 MG TABEC PO SCH (09:57)
[2019-11-21] MEDS: ASCORBIC ACID 500 MG TAB PO SCH ×2 (09:57→18:18)
[2019-11-21] MEDS: ZINC SULFATE 220 MG CAP PO SCH (09:58)
[2019-11-21] MEDS: AZITHROMYCIN 500MG/NS 250 ML 250 ML IV SCH (12:30)
[2019-11-21] MEDS: CEFTRIAXONE SOD 2 GM/NS 100 ML 100 ML IV SCH (14:59)
--- NOTE | 2019-11-21 17:50 | NUR ---
INFECTIOUS DISEASE PROGRESS NOTE DR. HUSSAIN SEAY REASON FOR CONSULTATION: COVID. HISTORY OF PRESENT ILLNESS: This patient is a very pleasant 44-year-old white female, comes in with 3 days history of cough, fever, and not feeling well. 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 The patient came to emergency room where she was found to be hypoxemic. She is currently on 2 L. ROS: +fatigue +SOB ALL 14 POINT ROS NEG UNLESS OTHERWISE NOTED ALLERGIES: NKA. LABORATORY DATA: REVIEWED RADIOLOGY: reviewed PHYSICAL EXAMINATION: GENERAL: She is currently alert, oriented. VITAL SIGNS: per chart HEENT: Normocephalic, not icteric. NECK: Supple. CHEST: Few crackles bilateral. HEART: S1-S2. ABDOMEN: Soft. Bowel sounds present. EXTREMITIES: No edema. SKIN: No rash. IMPRESSION: COVID 19 PNA diarrhea resolved PLAN: RMSV COVID protocol supportive care midline can d/c with home oxygen when RMSV is finished Finish 10 days of decadron Khushbu Trevino MSN, CRUSHER TENDER, AGACNP-BC Hussain Seay M.D
--- NOTE | 2019-11-21 18:06 | Progress Note ---
DATE: SUBJECTIVE: The patient feels better, but still has some cough. She is not having fevers. PHYSICAL EXAMINATION: VITAL SIGNS: The patient is afebrile. The blood pressure is 125/77, saturation is 97% on 2.5 L. HEENT: Shows no facial swelling or erythema. LYMPHATIC: Shows no submandibular, cervical or supraclavicular adenopathy. CARDIAC: Reveals regular rate and rhythm with normal S1 and S2. LUNGS: Auscultation of lungs reveals rhonchorous breath sounds bilaterally. There is no wheezing. ABDOMEN: Soft and nontender. There is no rebound or guarding. EXTREMITIES: Shows no leg edema or calf tenderness. There is no cyanosis or clubbing. SKIN: Shows no rashes. NEUROLOGICAL: Shows no focal abnormalities. LABORATORY DATA: White blood cell count is 5.5, hemoglobin is 10.6, and the platelet count is 271. The BUN to creatinine ratio is 12 to 0.69. Other electrolytes are within normal limits and the albumin is 2.7. IMPRESSION: 1. Acute respiratory failure. 2. COVID-19 and viral pneumonia. 3. Diarrhea. PLAN: 1. Complete remdesivir. 2. Complete dexamethasone. 3. Evaluation for home oxygen. 4. Possible discharge tomorrow after completion of remdesivir or possibly Monday. Evaristo Noriega MD [facility]/MODL /[id number]
[2019-11-21] MEDS: REMDESIVIR 100MG/NS 100ML 100 MG IV SCH (18:18)
[2019-11-21] MEDS: ENOXAPARIN SOD INJ 40 MG/0.4 ML SYR SC SCH (18:18)
[2019-11-22] VITALS (7 sets, daily range): BP systolic 114–142; BP diastolic 67–98
--- NOTE | 2019-11-22 02:52 | Progress Note ---
DATE: 11/21/2019 Medicine Progress Note SUBJECTIVE: The patient reportedly doing well today with no complaints. PHYSICAL EXAMINATION: VITAL SIGNS: Afebrile, normotensive. Respiratory rate good, 2.5 L nasal cannula. GENERAL: No acute distress. Alert and oriented x3. PULMONARY: Clear to auscultation bilaterally. No wheezing, no rales, no rhonchi. No crackles appreciated. CARDIOVASCULAR: Positive S1 and S2. No murmurs, rubs, or gallops appreciated. ABDOMEN: Soft, nondistended, nontender to palpation. Bowel sounds present. MUSCULOSKELETAL: Strength 5/5 throughout. LABORATORY DATA: CBC stable. Chemistry, reviewed and stable. MICROBIOLOGY: Cultures were negative. IMAGING STUDIES: None. IMPRESSION: 1. COVID-19 pneumonia/viral pneumonia. 2. Acute hypoxemic respiratory distress secondary to viral pneumonia from coronavirus. 3. Leukopenia secondary to coronavirus. 4. Diarrhea secondary to coronavirus-improving. PLAN: At this time, the patient reports feeling much better. Diarrhea improved. Very minimal cough and congestion. On day 4 of 5 of remdesivir, steroids, antibiotic therapy, ProAir inhalers. MD WILMA Bartlett/MODL /[id number]
[2019-11-22] MEDS: ONDANSETRON HCL INJ 2MG/ML 2ML 2 MG/ML VIAL IV PRN ×2 (04:45→21:53)
[2019-11-22] MEDS: GUAIFENESIN/CODEINE 10 ML CUP PO PRN ×2 (04:45→21:53)
[2019-11-22] MEDS: DEXAMETHASONE SOD PHOS INJ 4 MG/ML VIAL IV SCH (05:46)
[2019-11-22 06:34] LABS: BASOPHILS % 0.2 % (0.0-1.0); EOSINOPHILS % 0.2 % (0.0-6.0); HEMATOCRIT 33.8 % (34.2-44.1); HEMOGLOBIN 10.9 g/dL (12.0-16.0); LYMPHOCYTES # (AUTO) 1.7 (1.0-3.2); LYMPHOCYTES % 25.9 % (18.0-39.1); MEAN CORPUSCULAR HEMOGLOBIN 27.8 pg (28-32); MEAN CORPUSCULAR HGB CONC 32.2 g/dL (31-35); MEAN CORPUSCULAR VOLUME 86.2 fL (81-99); MONOCYTES # (AUTO) 0.5 (0.2-0.8); NEUTROPHILS # (AUTO) 4.1 (2.1-6.9); NEUTROPHILS % 64.3 % (38.7-80.0); PLATELET COUNT 332 x10e3/uL (140-360); RED BLOOD COUNT 3.92 x10e6/uL (3.6-5.1); RED CELL DISTRIBUTION WIDTH 14.6 % (11.7-14.4)
[2019-11-22 06:53] LABS: ALANINE AMINOTRANSFERASE 36 IU/L (0-55); ALBUMIN 2.7 g/dL (3.5-5.0); ALBUMIN/GLOBULIN RATIO 0.8 (0.8-2.0); ALKALINE PHOSPHATASE 45 IU/L (40-150); BLOOD UREA NITROGEN 11 mg/dL (7-26); BUN/CREATININE RATIO 16 (6-25); CALCIUM 7.8 mg/dL (8.4-10.2); CARBON DIOXIDE 28 mmol/L (22-29); CHLORIDE 104 mmol/L (98-107); EST GLOMERULAR FILTRATION RATE > 60 ML/MIN (60-); GLUCOSE 96 mg/dL (74-118); SODIUM 141 mmol/L (136-145)
--- NOTE | 2019-11-22 07:45 | NUR ---
PATIENT AMBULATED TO THE RESTROOM AND BACK TO BED, NO DISTRESS NOTED. BED IN LOWER POSITION, CALL LIGHT AT REACH.
[2019-11-22] MEDS: PANTOPRAZOLE SOD 40 MG TABEC PO SCH (08:24)
[2019-11-22] MEDS: HYDROCODONE/APAP 5MG-325MG TAB PO PRN ×2 (08:35→16:00)
[2019-11-22] MEDS: BENZONATATE 100 MG CAP PO PRN ×2 (08:35→16:00)
[2019-11-22] MEDS: ZINC SULFATE 220 MG CAP PO SCH (09:22)
[2019-11-22] MEDS: ASCORBIC ACID 500 MG TAB PO SCH ×2 (09:22→17:28)
--- NOTE | 2019-11-22 11:27 | NUR ---
PATIENT IN BED RESTING WITH NO S/S OF DISTRESS. BED IN LOWER POSITION, CALL LIGHT AT REACH.
[2019-11-22] MEDS: AZITHROMYCIN 500MG/NS 250 ML 250 ML IV SCH (11:45)
[2019-11-22] MEDS: CEFTRIAXONE SOD 2 GM/NS 100 ML 100 ML IV SCH (13:16)
--- NOTE | 2019-11-22 15:25 | Progress Note ---
DATE: SUBJECTIVE: The patient feels better. She has less dyspnea and coughing. She is awaiting completion of her remdesivir. PHYSICAL EXAMINATION: VITAL SIGNS: Blood pressure is 126/82, saturation is 95% on 2.5 L, and the pulse is 54. HEENT: Shows no facial swelling or erythema. LYMPHATIC: Shows no submandibular, cervical, or supraclavicular adenopathy. CARDIAC: Reveals regular rate and rhythm with normal S1 and S2. LUNGS: Auscultation of lungs reveals crackles and rhonchi bilaterally. There is no wheezing. ABDOMEN: Soft and nontender. There is no rebound or guarding. EXTREMITIES: Show no leg edema or calf tenderness. There is no cyanosis or clubbing. SKIN: Shows no rashes. LABORATORY DATA: White blood cell count is 6.37, hemoglobin is 10.9, and the platelet count is 332. The BUN to creatinine ratio is 11 to 0.7, and other electrolytes are within normal limits. Albumin is 2.7. IMPRESSION: 1. Acute respiratory failure. 2. COVID-19 and viral pneumonia. 3. Diarrhea. PLAN: 1. Complete remdesivir. 2. Complete [id number]. 3. Possible discharge home tomorrow. 4. Evaluate for home oxygen. Evaristo Noriega MD [facility]/MOD[facility] /[id number]
--- NOTE | 2019-11-22 15:38 | NUR ---
MD IN TO SEE PATIENT, NEW ORDER RECEIVED.
--- NOTE | 2019-11-22 15:43 | NUR ---
INFECTIOUS DISEASE PROGRESS NOTE DR. HUSSAIN SEAY REASON FOR CONSULTATION: COVID. HISTORY OF PRESENT ILLNESS: This patient is a very pleasant 44-year-old white female, comes in with 3 days history of cough, fever, and not feeling well. 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 The patient came to emergency room where she was found to be hypoxemic. She is currently on 2 L. ROS: +fatigue +SOB ALL 14 POINT ROS NEG UNLESS OTHERWISE NOTED ALLERGIES: NKA. LABORATORY DATA: REVIEWED RADIOLOGY: reviewed PHYSICAL EXAMINATION: GENERAL: She is currently alert, oriented. VITAL SIGNS: per chart HEENT: Normocephalic, not icteric. NECK: Supple. CHEST: Few crackles bilateral. HEART: S1-S2. ABDOMEN: Soft. Bowel sounds present. EXTREMITIES: No edema. SKIN: No rash. IMPRESSION: COVID 19 PNA diarrhea resolved PLAN: can d/c with home oxygen if needed -walking test to be performed Finish 10 days of decadron upon discharge Khushbu Trevino MSN, FINISHER MAP AND CHART, AGACNP-BC Hussain Seay M.D
--- NOTE | 2019-11-22 15:44 | NUR ---
INFECTIOUS DISEASE PROGRESS NOTE DR. UHSSAIN SEAY REASON FOR CONSULTATION: COVID. HISTORY OF PRESENT ILLNESS: This patient is a very pleasant 44-year-old white female, comes in with 3 days history of cough, fever, and not feeling well. 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 The patient came to emergency room where she was found to be hypoxemic. She is currently on 2 L. ROS: +fatigue +SOB ALL 14 POINT ROS NEG UNLESS OTHERWISE NOTED ALLERGIES: NKA. LABORATORY DATA: REVIEWED RADIOLOGY: reviewed PHYSICAL EXAMINATION: GENERAL: She is currently alert, oriented. VITAL SIGNS: per chart HEENT: Normocephalic, not icteric. NECK: Supple. CHEST: Few crackles bilateral. HEART: S1-S2. ABDOMEN: Soft. Bowel sounds present. EXTREMITIES: No edema. SKIN: No rash. IMPRESSION: COVID 19 PNA diarrhea resolved PLAN: discharge pending may need home oxygen, evaluate need with walking test see me in 3 weeks in clinic Khushbu Trevino MSN, BLOOD SPLATTER ANALYST, AGACNP-BC Hussain Seay M.D
[2019-11-22] MEDS: REMDESIVIR 100MG/NS 100ML 100 MG IV SCH (16:02)
--- NOTE | 2019-11-22 17:09 | NUR ---
ORDER RECEIVED FOR HOME O2 @ 2.5L/NC CALL TO THE PT TO DISCUSS CHOICE; JANIS MAJANO PT CHOSE [facility]. CHOICE LETTER SIGNED AND COPY TO PT AND COPY TO CHART. REFERRAL FAXED TO [facility] @ OFF: [phone] / FAX: [phone].
[2019-11-22] MEDS: ENOXAPARIN SOD INJ 40 MG/0.4 ML SYR SC SCH (17:28)
--- NOTE | 2019-11-22 19:52 | NUR ---
Received pt in bed awake and orientated no c/o at this time, Pt bed low and locked, bedside report completed. No s/sx of acute distress noted, personal items and call light within reach. Will cont to mon.
--- NOTE | 2019-11-22 23:52 | NUR ---
Pt call nurse to room to c/o feeling hot w/redness to face and ears. Pt denies any changes in taking anything by mouth other than medications administered by nurse or food given by nurse. No sob noted, denies pain, O2 sat wnl, VSS. Pt states her ears have done this before outside of this facility for no reason at all. No s/sx of acute distress noted, Will cont to monitor patient
[2019-11-23] VITALS: BP 118/81
[2019-11-23 04:00] VITALS: BP 132/92
[2019-11-23] MEDS: DEXAMETHASONE SOD PHOS INJ 4 MG/ML VIAL IV SCH (05:18)
[2019-11-23] MEDS: HYDROCODONE/APAP 5MG-325MG TAB PO PRN ×2 (05:20→12:15)
[2019-11-23] MEDS: BENZONATATE 100 MG CAP PO PRN ×2 (05:20→12:15)
--- NOTE | 2019-11-23 07:14 | NUR ---
PATIENT SITTING UP IN BED COLORING, NO COMPLAIN VOICED, O2 IN PLACE VIA N/C. BED IN LOWER POSITION, CALL LIGHT AT REACH.
[2019-11-23 07:45] VITALS: BP 131/65
[2019-11-23] MEDS: PANTOPRAZOLE SOD 40 MG TABEC PO SCH (08:00)
--- NOTE | 2019-11-23 08:52 | Progress Note ---
DATE: 11/22/2019 SUBJECTIVE: The patient is doing much better today with no complaints. We are working on home O2. She reports she is breathing very well with no other issues. PHYSICAL EXAMINATION: VITAL SIGNS: Afebrile, normotensive. She is on 2.5 L nasal cannula. Blood pressure stable. GENERAL: No acute distress, alert and oriented x3. She is cooperative on examination. HEENT: Head normocephalic, atraumatic. Eyes; pupils are equal, round and reactive to light bilaterally. Extraocular movements are intact bilaterally. Throat, no evidence of any erythema or exudates in the posterior pharynx. Has poor dentition. NECK: Supple. Good range of motion. PULMONARY: Clear to auscultation bilaterally. No wheezing, rales, or rhonchi. No crackles appreciated. CARDIOVASCULAR: Positive S1, S2. No murmurs, rubs, or gallops. ABDOMEN: Soft, nondistended, nontender to palpation. Bowel sounds present. MUSCULOSKELETAL: Strength 5/5 throughout. NEUROLOGICAL: Cranial nerves 2 through 12 grossly intact. LABORATORY DATA: CBC stable. Chemistry reviewed. Also stable. Microbiology, all cultures were negative. Imaging studies, nothing new. IMPRESSION: 1. COVID-19 pneumonia/viral pneumonia. 2. Acute hypoxemic respiratory distress secondary to viral pneumonia from coronavirus. 3. Leukopenia secondary to coronavirus. 4. Diarrhea secondary to coronavirus-resolved. PLAN: At this time, she has completed five days of Remdesivir. Continue with steroids and antibiotic therapy including ProAir. She is improving tremendously. She will go home with home O2, which I discussed this with the patient and the nursing staff. We are working on home oxygen. Once the patient feels stable, cleared from all the consultants. She will be discharged to home. MD WILMA Bartlett/IDALIA /[id number]
[2019-11-23 08:55] VITALS: BP 131/65
[2019-11-23] MEDS: ASCORBIC ACID 500 MG TAB PO SCH (09:23)
[2019-11-23] MEDS: ZINC SULFATE 220 MG CAP PO SCH (09:23)
--- NOTE | 2019-11-23 11:28 | NUR ---
PATIENT SITTING AT BED SIDE TALKING ON THE PHONE, NO COMPLAIN VOICED. CALL LIGHT AT REACH.
--- NOTE | 2019-11-23 11:31 | NUR ---
Nutrition LOS Note RD Recommendation for Physician: -Continue diet as ordered Plan of Care: RD following, monitoring for tolerance and adequacy Nutrition reason for involvement: LOS Primary Diagnose(s): COVID PNA PMH: None Ht: 64in Wt: 200.25lb BMI: 34.4kg/m2 IBW: 120lb +/- 10% RD Assessment: Chart reviewed. Labs and meds reviewed. 44yo F, who is admitted for COVID PNA. Visited pt in the room. Pt reports good appetite with 75-100% meal intake. Pt denies any nausea, vomiting or diarrhea. No chewing or swallowing difficulty reported. Weight has been stable. Plan for d/c soon. Current Diet: Cardiac diet Malnutrition Evaluation The patient does not meet criteria for a specified degree of malnutrition at this time. Will re-evaluate at follow-up as appropriate. Diet Education Needs Assessment: Diet education not indicated. Nutrition Care Level: low Signed: Bette Hyman, MS, RD, LD
[2019-11-23 11:40] VITALS: BP 121/79
[2019-11-23] MEDS: AZITHROMYCIN 500MG/NS 250 ML 250 ML IV SCH (12:16)
[2019-11-23 12:43] LABS: HEMATOCRIT 36.3 % (34.2-44.1); HEMOGLOBIN 11.7 g/dL (12.0-16.0); LYMPHOCYTES # (AUTO) 0.8 (1.0-3.2); MEAN CORPUSCULAR HEMOGLOBIN 26.9 pg (28-32); MEAN CORPUSCULAR HGB CONC 32.2 g/dL (31-35); MEAN CORPUSCULAR VOLUME 83.4 fL (81-99); MONOCYTES # (AUTO) 0.3 (0.2-0.8); MONOCYTES % 3.2 % (4.4-11.3); NEUTROPHILS # (AUTO) 7.7 (2.1-6.9); NEUTROPHILS % 86.8 % (38.7-80.0); PLATELET COUNT 417 x10e3/uL (140-360); RED BLOOD COUNT 4.35 x10e6/uL (3.6-5.1); RED CELL DISTRIBUTION WIDTH 14.5 % (11.7-14.4)
[2019-11-23 13:05] LABS: ALANINE AMINOTRANSFERASE 32 IU/L (0-55); ALBUMIN/GLOBULIN RATIO 0.8 (0.8-2.0); ALKALINE PHOSPHATASE 57 IU/L (40-150); ANION GAP 15.4 mmol/L (8-16); BLOOD UREA NITROGEN 10 mg/dL (7-26); BUN/CREATININE RATIO 15 (6-25); CALCIUM 8.5 mg/dL (8.4-10.2); CARBON DIOXIDE 26 mmol/L (22-29); CHLORIDE 100 mmol/L (98-107); CREATININE, SERUM 0.67 mg/dL (0.57-1.11); EST GLOMERULAR FILTRATION RATE > 60 ML/MIN (60-); GLUCOSE 172 mg/dL (74-118); POTASSIUM 4.4 mmol/L (3.5-5.1); SODIUM 137 mmol/L (136-145)
[2019-11-23] MEDS: CEFTRIAXONE SOD 2 GM/NS 100 ML 100 ML IV SCH (13:30)
--- NOTE | 2019-11-23 14:04 | NUR ---
Informed RN to let pt know to call the DME co re oxygen before she leaves the hospital so they can make arrangements to meet with her at home for equipment delivery and teaching.
[2019-11-23] MEDS ORDERED: TESSALON PERLE100 MG PO (15:32)
[2019-11-23] MEDS ORDERED: TYLENOL # 31 EA PO (15:33)
[2019-11-23] MEDS ORDERED: DEXAMETHASONE4 MG PO (15:34)
[2019-11-23 16:02] VITALS: BP 133/96
--- NOTE | 2019-11-23 16:05 | NUR ---
PATIENT'S HOME O2 DELIVERED; READY TO BE DISCHARGED.
--- NOTE | 2019-11-23 17:10 | NUR ---
PATIENT DISCHARGED HOME. DISCHARGE INSTRUCTIONS, PRESCRIPTIONS, AND FOLLOW UP GIVEN TO PATIENT, SHE VERBALIZED UNDERSTANDING. IV TO RIGHT AC AND MIDLINE TO LEFT UPPER ARM REMOVED WITH TIP INTACT. ALL PERSONAL ITEMS TAKEN WITH PATIENT. LEFT UNIT PER WHEEL CHAIR TO FRONT LOBBY IN STABLE CONDITION.
--- NOTE | 2019-11-23 17:54 | Progress Note ---
DATE: SUBJECTIVE: Ms. Mccormick remains in the hospital. She said she is doing better. However, she remains hypoxemic with mobility. She would like to go home. REVIEW OF SYSTEMS: Otherwise unremarkable. PHYSICAL EXAMINATION: GENERAL: She is currently alert, oriented. VITAL SIGNS: Stable, currently afebrile. HEENT: She is not icteric. NECK: Supple. CHEST: Crackles bilaterally. HEART: S1, S2. ABDOMEN: Soft. Bowel sounds present. EXTREMITIES: No edema. SKIN: No rash. IMPRESSION: Coronavirus disease-19 respiratory failure. She is to discharge home with oxygen, to finish 10 days of dexamethasone, to see me back in 3 weeks. Discussed with the patient. Discussed with medical team. We will follow. Alfie Holley MD [facility] /[id number]
--- NOTE | 2019-11-24 10:16 | Discharge Summary ---
FINAL DISCHARGE DIAGNOSES: 1. Coronavirus disease 19 pneumonia/viral pneumonia. 2. Acute hypoxemic respiratory distress secondary to viral pneumonia from coronavirus. 3. Leukopenia secondary to coronavirus. 4. Diarrhea secondary to coronavirus-resolved. CONSULTANTS: Pulmonary and Infectious Disease. PHYSICAL EXAMINATION: VITAL SIGNS: Temperature is 98.9, pulse is 56, respiratory rate is 18, blood pressure 133/96, pulse ox 96% on 2 L nasal cannula. She was discharged on home O2. LABORATORY DATA: Show white count 8, hemoglobin 11.7, hematocrit 36.3, platelets of 417. Chemistry, sodium 137, potassium 4.4, chloride 100, bicarb 26, anion gap of 13, BUN is 10, creatinine 0.67, glucose was 120, calcium is 8.5. Total bilirubin 0.2, AST 27, ALT 32, alkaline phosphatase 57. Albumin was 3. Troponins were negative. Urinalysis noted. Urine culture negative. Blood cultures are negative. Coronavirus was positive. Flu was negative. IMAGING STUDIES: Chest x-ray, lungs findings concerning for multifocal pneumonia, viral pneumonia. HOSPITAL COURSE: A 44-year-old female came into the ED with cough, congestion, and shortness of breath, found to have coronavirus pneumonia. The patient was admitted for further evaluation and management, in which Pulmonary and ID were consulted. While here, the patient was on IV Remdesivir, IV steroids, and antibiotic therapy, including vitamins. She also had some antitussives medications. The patient completed 5 days of IV Remdesivir as per protocol. She improved throughout the hospital course. She denied any chest pain, palpitation. She was afebrile. I spoke with ID and Pulmonary, and both consultants cleared the patient for discharge home. She has home O2 arranged, that was provided to her prior to being discharged. She will continue with oral dexamethasone on discharge to complete 10 total days. She has also completed the Remdesivir here, completed antibiotics as well per ID. She will follow up with the ID Clinic in 2 weeks to be monitored very closely. I had a long discussion with the patient with the nurse present at the bedside about in the event she gets worse, she is to call 911 or come to the local ER for further evaluation and management. She is currently doing well. She is ambulating with no complications. She is on oxygen and will be going on home O2 2 L. She is very stable and she is eager to go home. She was cleared for discharge by all consultants. She was educated about self quarantining for 2 weeks, wearing mask at all times, and call 911 for any sudden change in her status. She verbalized understanding. On the day of discharge, vital signs were stable. The patient was seen, evaluated, and examined thoroughly on the day of discharge. No other complaints. The patient verbalized understanding and agrees to plan of care to follow up as an outpatient with primary care physician in 1 week and Pulmonary and ID in 2 weeks' time. MEDICATIONS: See med reconciliation form. DISPOSITION: Home. CONDITION: . The patient was educated about coming to the emergency room in the event she has worsening respiratory status or any change in status for further management and care. She verbalized understanding and agrees to plan of care. MD WILMA Bartlett/IDALIA /[id number]
== END 2019-11-23 17:02 | disposition home or self-care (01) | DRG 177 ==
LOC: ER 03:52 → ERHOLD 05:42 → MED/SURG2 18:33 → MED/SURG3 11-19 19:55
PROVIDERS: ADMIT Internal Medicine; ATTEND Internal Medicine
PROC: XW043E5 Introduction of Remdesivir Anti-infective into Central Vein, Percutaneous Approach, New Technology Group 5 (ICD-10-PCS; principal; 2019-11-20)
DX: U07.1 COVID-19 (principal); J12.9 Viral pneumonia, unspecified; J96.21 Acute and chronic respiratory failure with hypoxia; J96.01 Acute respiratory failure with hypoxia; A08.39 Other viral enteritis; Z87.891 Personal history of nicotine dependence
CPT/HCPCS: 36415; 36568; 71045; 80053; 81001; 82306; 82550; 82553; 82948; 83605; 84484; 85025; 87040; 87086; 87400; 93005; 96360; 99284; J0456; J0696; J1100; J1650; J2405; J7040; J7050

== ENCOUNTER 2024-04-01 14:10 | Emergency (ER) | payer SELFPAY ==
[~2024-04-01] VITALS: Ht 162.6 cm; Wt 90.7 kg
[~2024-04-01 14:10] MED LIST: DEXAMETHASONE4 MG PO; KEFLEX500 MG PO; MEDROL4 M2 PO; TESSALON PERLE100 MG PO; TYLENOL # 31 EA PO
[2024-04-01 15:21] VITALS: RESP 18; TEMP 98.4
[2024-04-01] MEDS: SODIUM CHLORIDE 0.9% 1000ML 1,000 ML IV ONE (15:44)
[2024-04-01] MEDS: ONDANSETRON HCL INJ 2MG/ML 2ML 2 MG/ML VIAL IV STA (15:44)
[2024-04-01 15:53] LABS: BASOPHILS % 0.4 % (0.0-1.0); EOSINOPHILS % 0.3 % (0.0-6.0); HEMATOCRIT 32.7 % (34.2-44.1); HEMOGLOBIN 10.9 g/dL (12.0-16.0); LYMPHOCYTES # (AUTO) 1.3 (1.0-3.2); LYMPHOCYTES % 17.2 % (18.0-39.1); MEAN CORPUSCULAR HEMOGLOBIN 30.1 pg (28-32); MEAN CORPUSCULAR HGB CONC 33.3 g/dL (31-35); MEAN CORPUSCULAR VOLUME 90.3 fL (81-99); MONOCYTES # (AUTO) 0.6 (0.2-0.8); MONOCYTES % 7.5 % (4.4-11.3); NEUTROPHILS # (AUTO) 5.7 (2.1-6.9); NEUTROPHILS % 74.3 % (38.7-80.0); PLATELET COUNT 296 x10e3/uL (140-360); RED BLOOD COUNT 3.62 x10e6/uL (3.6-5.1); RED CELL DISTRIBUTION WIDTH 15.6 % (11.7-14.4); WHITE BLOOD COUNT 7.63 x10e3/uL (4.8-10.8)
[2024-04-01 16:12] LABS: ALBUMIN 3.8 g/dL (3.5-5.0); ALBUMIN/GLOBULIN RATIO 1.2 (0.8-2.0); ANION GAP 16.8 mmol/L (8-16); CALCIUM 8.6 mg/dL (8.4-10.2); CREATININE, SERUM 0.81 mg/dL (0.57-1.11); POTASSIUM 3.8 mmol/L (3.5-5.1); TOTAL PROTEIN 7.1 g/dL (6.5-8.1)
[2024-04-01 16:15] VITALS: PULSE 75; O2SAT 100
[2024-04-01] MEDS ORDERED: IOPAMIDOL 370 MG/ML 100 ML INFUS..BTL INJ ONE (16:45)
[2024-04-01] MEDS ORDERED: NAPROSYN500 MG PO (18:37)
[2024-04-01] MEDS: KETOROLAC TROMETHAMINE 30 MG/ML VIAL IV STA (18:45)
== END 2024-04-01 18:57 | disposition home or self-care (01) ==
LOC: ER 16:07
DX: N93.8 Other specified abnormal uterine and vaginal bleeding (principal); N83.202 Unspecified ovarian cyst, left side; K76.0 Fatty (change of) liver, not elsewhere classified; I10 Essential (primary) hypertension; D64.9 Anemia, unspecified; M19.09 Primary osteoarthritis, other specified site
CPT/HCPCS: 36415; 74177; 80053; 85025; 86850; 86900; 99284; J1885; J2405; J7030; Q9967